=== PATIENT | female | born 1955 | race African-American/Black ===

== ENCOUNTER 2016-12-27 22:52 | Emergency (ER) | payer MEDICAID, OTHER ==
[~2016-12-27] VITALS: Ht 162.6 cm; Wt 77.1 kg
[~2016-12-27 22:52] MED LIST: ALBUTEROL2.5 MG/3 M INH; FLONASE1 SPRAYS NASAL; PROMETHAZINE V240 ML ORAL; TRAMADOL HCL50 MG ORAL
[2016-12-27 23:15] VITALS: BP 118/75
[2016-12-27] MEDS ORDERED: Morphine Sulfate 4mg/ml Inj IVP ONE (23:45)
[2016-12-28] MEDS ORDERED: Lidocaine 2% Visc 15ml soln ORAL ONE
[2016-12-28] MEDS ORDERED: TdaP Vaccine 0.5ml Syr IM ONE
[2016-12-28 00:27] LABS: INR 1.1 (0.9-1.1); PROTHROMBIN TIME 11.1 SEC (9.30-11.50)
[2016-12-28 00:30] LABS: ALANINE AMINOTRANSFERASE 33 U/L (3-33); ALBUMIN/GLOBULIN RATIO 1.1 (1.0-2.7); ANION GAP 14 (5-15); ASPARTATE AMINO TRANSFERASE 36 U/L (5-40); CARBON DIOXIDE 24 mEQ/L (20-30); CHLORIDE 104 mEQ/L (98-107); CREATININE 0.7 mg/dL (0.5-0.9); GLOMERULAR FILTRATION RATE > 60 mL/min (>60); HEMOLYSIS 3; POTASSIUM 3.6 mEQ/L (3.4-4.9); SODIUM 142 mEQ/L (135-145); TOTAL PROTEIN 7.6 g/dL (6.6-8.7)
[2016-12-28] MEDS ORDERED: Lidocaine 1% 10mg/ml/Epi 0.005mg/ml 30ml vial INJ ONE (00:30)
[2016-12-28 00:35] LABS: BASOPHILS % (AUTO) 1.6 % (0.0-2.0); EOSINOPHILS % (AUTO) 3.8 % (0.0-3.0); LYMPHOCYTES % (AUTO) 22.7 % (20.0-45.0); MEAN CORPUSCULAR HEMOGLOBIN 27.5 PG (27.0-31.0); MEAN CORPUSCULAR HGB CONC 31.4 G/DL (32.0-36.0); MEAN CORPUSCULAR VOLUME 88 FL (80-99); MEAN PLATELET VOLUME 7.7 FL (6.5-10.1); MONOCYTES % (AUTO) 8.3 % (1.0-10.0); NEUTROPHILS % (AUTO) 63.7 % (45.0-75.0); PLATELET COUNT 251 K/UL (150-450); RED BLOOD COUNT 4.69 M/UL (4.20-5.40); RED CELL DISTRIBUTION WIDTH 13.6 % (11.6-14.8); WHITE BLOOD COUNT 8.8 K/UL (4.8-10.8)
[2016-12-28 01:30] VITALS: BP 126/77
[2016-12-28] MEDS ORDERED: Morphine Sulfate 4mg/ml Inj IVP ONE (02:45)
[2016-12-28] MEDS ORDERED: NORCO 5-325 TA1 EACH ORAL (03:14)
[2016-12-28] MEDS ORDERED: IBUPROFEN600 MG ORAL (03:14)
[2016-12-28 03:58] VITALS: BP 121/78
--- NOTE | 2016-12-28 09:07 | Diagnostic Imaging Report ---
Indication: PAIN, status post fall Technique: Continuous helical CT scanning of the head was performed without intravenous contrast material. Axial and coronal 5 mm sections were generated. Radiation dose was minimized using automated exposure control Dose: Total Dose Length Product - DLP 12/02/[address] Dose Index - CTDIvol(s) 70.38 mGy. Comparison: Findings: The ventricular system is normal in size and configuration. There is no shift of midline structures. No abnormal extra-axial fluid collections are noted. There is no evidence of intracerebral bleeding. No other abnormal high or low density areas are noted within the brain. Soft tissue calcifications are seen within the left malar subcutaneous fat. The sinuses are clear. The orbits are unremarkable. There is no evidence of significant extracranial scalp soft tissue injury. Impression: Normal CT scan of the head without contrast material. Left facial soft tissue calcifications, suspect on the basis of cosmetic injections or connective tissue disorder. Correlate with clinical history This agrees with the preliminary interpretation provided overnight by [facility]. The CT scanner at [facility] is accredited by the [employer] and the scans are performed using protocols designed to limit radiation exposure to as low as reasonably achievable to attain images of sufficient resolution adequate for diagnostic evaluation.
--- NOTE | 2016-12-28 09:12 | Diagnostic Imaging Report ---
Indication: PAIN, status post fall Technique: Spiral acquisitions obtained through the cervical spine. No IV contrast utilized. Multiplanar reconstructions were generated. Total dose length product 476 mGycm. CTDIvol(s) 19 mGy Comparison: None Findings: Is slight straightening of the normal cervical lordosis, otherwise normal bony alignment. No acute fractures. No dislocations. Vertebral body heights are preserved. There is mild degenerative disc narrowing at C4-5, C5-6, and C6-7. There is facet degeneration at C2-3 on the right, and C3-4 on the left. At C2-3, there is moderate narrowing of the right neural foramen due to degenerative change. No significant disc bulge or protrusion or spinal stenosis. At C3-4, there is severe narrowing of the left neural foramen due to facet degeneration. There is mild narrowing of the right neural foramen. The remaining levels, no significant disc old or protrusion, spinal stenosis, or neural foraminal narrowing. Small bullous changes are seen at the lung apices bilaterally. There is questionably a subcentimeter left thyroid lobe nodule. The included extraspinal soft tissues are otherwise unremarkable. Impression: Negative for acute fracture or dislocation Degenerative changes, as delineated on a level by level basis above Equivocal incidental finding of subcentimeter left thyroid lobe nodule. Consider thyroid sonography for there are characterization This agrees with the preliminary interpretation provided overnight by [facility]. The CT scanner at [facility] is accredited by the [employer] and the scans are performed using protocols designed to limit radiation exposure to as low as reasonably achievable to attain images of sufficient resolution adequate for diagnostic evaluation.
--- NOTE | 2016-12-28 10:12 | Emergency Room Report ---
History of Present Illness General Chief Complaint: Multiple Trauma/Fall Source: Patient Present Illness HPI Patient is a 61-year-old female who presented after a fall. Patient reportedly was at a store when she slipped on a cement. She reported having increased pain to her right upper extremity and right knee. She reportedly hit her head. She denied loss of consciousness. She reported having some neck pain right shoulder pain. She denied any fever. She denied any numbness or extremities. Injury occurred just prior to arrival. She reports having no recent tetanus shot in the past 5 years Allergies: Coded Allergies: PENICILLINS (Unverified Allergy, Unknown, 09/17/14) Patient History Past Medical History: see triage record Reviewed Nursing Documentation: PMH: Agreed, PSxH: Agreed Nursing Documentation-PMH Hx Cardiac Problems: Yes - cholesterol Hx Asthma: Yes Review of Systems All Other Systems: negative except mentioned in HPI Physical Exam Vital Signs Date Time Temp Pulse Resp B/P Pulse Ox O2 Delivery O2 Flow Rate FiO2 12/27/16 23:04 97.3 73 16 114/72 95 Room Air Sp02 EP Interpretation: reviewed, normal General Appearance: normal inspection, well appearing, no apparent distress, alert, GCS 15, obese Head: atraumatic ENT: normal ENT inspection, hearing grossly normal, normal voice Neck: normal inspection, full range of motion, supple, no bony tend Respiratory: normal inspection, lungs clear, normal breath sounds, no respiratory distress, no retraction, no wheezing Cardiovascular #1: regular rate, rhythm, no edema Gastrointestinal: normal inspection, normal bowel sounds, non tender, soft, no guarding, no hernia Genitourinary: no CVA tenderness Musculoskeletal: normal inspection, back normal, normal range of motion Neurologic: normal inspection, alert, oriented x3, responsive, forestry patrolman III-XII nml as tested, speech normal Psychiatric: normal inspection, judgement/insight normal, mood/affect normal Skin: laceration - 2 cm laceration to webspace of 3rd and 4th fingers Procedures Laceration/Wound Repair Laceration/Wound Repair : Wound Location: upper extremity Wound's Depth, Shape: linear, irregular Wound Length (cm): 2 Wound Explored: clean Irrigated w/ Saline (ccs): 30 Betadine Prep?: Yes Anesthesia: Lidocaine w/ Epi Volume Anesthetic (ccs): 30 Wound Debrided: minimal Wound Repaired With: sutures Suture Size/Type: 5:0 Number of Sutures: 5 Layer Closure?: No Splint Applied?: Yes Type of Splint Applied: short arm volar Patient Tolerated: Well Complications: None Medical Decision Making Diagnostic Impression: Primary Impression: Fall Additional Impressions: Fracture Laceration Knee contusion Multiple injuries due to trauma ER Course The patient presented after a fall.Differential diagnosis included was not limited to neck fracture, CVA, close head injury, syncopal episode, basilar ischemia, extremity fracture. Because of complexity of patient's case laboratory testing and imaging studies were ordered. The x-ray imaging of the right hand interpreted by me showed a fracture of the base the fifth metacarpal. Patient was noted to have a laceration between the webspace of the third and fourth finger. The laceration was. And repaired with sutures. Sterile dressing was applied. The patient was placed in a splint. X-ray imaging of the right knee me showed soft tissue swelling without evident fracture. The patient was advised that she would need followup with orthopedics. Patient was advised to have suture removed in 10-14 days. The patient is advised to follow up with primary care doctor in 1-2 days. Patient is advised to return if any worsening condition or if any changes in status that are concerning. Laboratory Tests Test 12/28/16 00:00 White Blood Count 8.8 K/UL (4.8-10.8) Red Blood Count 4.69 M/UL (4.20-5.40) Hemoglobin 12.9 G/DL (12.0-16.0) Hematocrit 41.2 % (37.0-47.0) Mean Corpuscular Volume 88 FL (80-99) Mean Corpuscular Hemoglobin 27.5 PG (27.0-31.0) Mean Corpuscular Hemoglobin Concent 31.4 G/DL (32.0-36.0) L Red Cell Distribution Width 13.6 % (11.6-14.8) Platelet Count 251 K/UL (150-450) Mean Platelet Volume 7.7 FL (6.5-10.1) Neutrophils (%) (Auto) 63.7 % (45.0-75.0) Lymphocytes (%) (Auto) 22.7 % (20.0-45.0) Monocytes (%) (Auto) 8.3 % (1.0-10.0) Eosinophils (%) (Auto) 3.8 % (0.0-3.0) H Basophils (%) (Auto) 1.6 % (0.0-2.0) Prothrombin Time 11.1 SEC (9.30-11.50) Prothrombin Time INR 1.1 (0.9-1.1) PTT 24 SEC (23-33) Sodium Level 142 mEQ/L (135-145) Potassium Level 3.6 mEQ/L (3.4-4.9) Chloride Level 104 mEQ/L (98-107) Carbon Dioxide Level 24 mEQ/L (20-30) Anion Gap 14 (5-15) Blood Urea Nitrogen 14 mg/dL (7-23) Creatinine 0.7 mg/dL (0.5-0.9) Estimate Glomerular Filtration Rate > 60 mL/min (>60) Glucose Level 127 mg/dL (74-106) H Calcium Level 9.0 mg/dL (8.6-10.2) Total Bilirubin 0.4 mg/dL (0.0-1.2) Aspartate Amino Transferase (AST) 36 U/L (5-40) Alanine Aminotransferase (ALT) 33 U/L (3-33) Alkaline Phosphatase 78 U/L (35-104) Total Protein 7.6 g/dL (6.6-8.7) Albumin 4.0 g/dL (3.5-5.2) Globulin 3.6 g/dL Albumin/Globulin Ratio 1.1 (1.0-2.7) Last Vital Signs Date Time Temp Pulse Resp B/P Pulse Ox O2 Delivery O2 Flow Rate FiO2 12/28/16 03:58 98.1 85 16 121/78 100 Room Air Status: improved Disposition: HOME, SELF-CARE Condition: Stable Scripts Ibuprofen* (MOTRIN*) 600 Mg Tablet 600 MG ORAL Q6H Y for For Pain, #30 TAB Prov: Manuel Adams 12/28/16 Hydrocodone Bit/Acetaminophen 5-325* (NORCO 5-325*) 1 Each Tablet 1 TAB ORAL Q6H Y for For Pain, #20 TAB 0 Refills Prov: Manuel Adams 12/28/16 Patient Instructions: Laceration Care, Adult, Contusion, Metacarpal Fracture Manuel Adams Dec 28, 2016 10:12
--- NOTE | 2016-12-28 11:59 | Diagnostic Imaging Report ---
Indication: PAIN Technique: 3 views of the right knee Comparison: None Findings:No acute fractures. No dislocations. Joint spaces are preserved Impression:Negative This agrees with the preliminary interpretation provided by the emergency room physician
--- NOTE | 2016-12-30 13:00 | Diagnostic Imaging Report ---
Indication: PAIN Technique: 3 views right hand Comparison: none Findings: There is a comminuted fracture of the base of the fifth metacarpal. Uncertain as to whether this involves the articular surface, but suspect it does not. No other acute fractures. No dislocations. Joint spaces are preserved. Impression: Positive for fifth metacarpal base fracture This agrees with the preliminary interpretation provided by the emergency room physician
== END 2016-12-28 03:58 | disposition home or self-care (01) ==
LOC: EMR 23:20
DX: S61.218A Laceration without foreign body of other finger without damage to nail, initial encounter (principal); M54.2 Cervicalgia; S62.606A Fracture of unspecified phalanx of right little finger, initial encounter for closed fracture; S80.01XA Contusion of right knee, initial encounter; Z88.6 Allergy status to analgesic agent; W01.0XXA Fall on same level from slipping, tripping and stumbling without subsequent striking against object, initial encounter; Y93.9 Activity, unspecified; Y92.512 Supermarket, store or market as the place of occurrence of the external cause
CPT/HCPCS: 12001; 36415; 70450; 72125; 73130; 73562; 80053; 85025; 85610; 85730; 90471; 90715; 96374; 96375; 99284; J2270; J2405; Z7502

== ENCOUNTER 2017-03-13 20:19 | Emergency (ER) | payer OTHER ==
[~2017-03-13] VITALS: Ht 162.6 cm; Wt 83.0 kg
[~2017-03-13 20:19] MED LIST changes: +IBUPROFEN600 MG ORAL; +NORCO 5-325 TA1 EACH ORAL
[2017-03-13 20:36] VITALS: BP 134/61
--- NOTE | 2017-03-13 20:57 | Emergency Room Report ---
History of Present Illness General Chief Complaint: Chest Pain Source: Patient Present Illness HPI Patient presents with right chest and flank pain. It started . It's intermittent. It's worse when she's jolted. The pain comes on suddenly and is rated at 7/10 pain. Radiates somewhat towards her back. Somewhat positional and pleuritic. It's somewhat exertional. There's been no productive cough. She's used her inhaler couple of times. There's no nausea vomiting diarrhea dysuria. She denies any rashes. There's been no fevers. She's taking some medicine [id number] for the pain which has not been helpful. There's no swelling in her calves and no calf pain. The patient sustained a right hand fracture recently. She's been unable to go to the gym since November. Allergies: Coded Allergies: CODEINE (Verified Allergy, Unknown, 03/13/17) PENICILLINS (Unverified Allergy, Unknown, 03/13/17) Patient History Past Medical History: see triage record Social History: Denies: alcohol use, drug use, smoking Social History Narrative She drove herself in Last Menstrual Period: n/a Reviewed Nursing Documentation: PMH: Agreed, PSxH: Agreed Nursing Documentation-PMH Hx Cardiac Problems: Yes - cholesterol Hx Asthma: Yes Review of Systems All Other Systems: negative except mentioned in HPI Physical Exam Vital Signs Date Time Temp Pulse Resp B/P Pulse Ox O2 Delivery O2 Flow Rate FiO2 03/13/17 20:24 98.4 94 13 134/61 94 Room Air Sp02 EP Interpretation: reviewed, abnormal - slightly low as interpreted by me General Appearance: well appearing, no apparent distress, GCS 15 Head: normocephalic Eyes: bilateral eye PERRL, bilateral eye normal inspection ENT: moist mucus membranes Neck: supple Respiratory: lungs clear, normal breath sounds, other - chest is tender to palpation R sided recreating the pain Cardiovascular #1: regular rate, rhythm Cardiovascular #2: 2+ radial (R) Gastrointestinal: normal inspection, normal bowel sounds, no mass, non- distended, no guarding, no rebound, tenderness - slight RUQ Musculoskeletal: back normal, gait/station normal, normal range of motion, no calf tenderness Neurologic: alert, oriented x3, grossly normal Psychiatric: mood/affect normal Skin: normal inspection, warm/dry Medical Decision Making Diagnostic Impression: Primary Impression: Flank pain Additional Impression: Muscle spasm ER Course The patient presents with right-sided chest and flank pain. Differential includes pyelonephritis, muscle strain, liver issues including a gallbladder. Evaluation will be with laboratory EKG and chest x-ray. This will be treated with Toradol. Exam is most consistent with muscle spasms and muscle pain. Labs and xray unremarkable. EKG normal. Improved with treatment. Patient stable for outpatient observation and treatment. Laboratory Tests Test 03/13/17 20:50 03/13/17 21:30 White Blood Count 7.0 K/UL (4.8-10.8) Red Blood Count 4.33 M/UL (4.20-5.40) Hemoglobin 12.4 G/DL (12.0-16.0) Hematocrit 37.6 % (37.0-47.0) Mean Corpuscular Volume 87 FL (80-99) Mean Corpuscular Hemoglobin 28.7 PG (27.0-31.0) Mean Corpuscular Hemoglobin Concent 33.0 G/DL (32.0-36.0) Red Cell Distribution Width 13.9 % (11.6-14.8) Platelet Count 240 K/UL (150-450) Mean Platelet Volume 7.5 FL (6.5-10.1) Neutrophils (%) (Auto) 54.4 % (45.0-75.0) Lymphocytes (%) (Auto) 27.4 % (20.0-45.0) Monocytes (%) (Auto) 9.4 % (1.0-10.0) Eosinophils (%) (Auto) 7.6 % (0.0-3.0) H Basophils (%) (Auto) 1.2 % (0.0-2.0) Prothrombin Time 11.0 SEC (9.30-11.50) Prothrombin Time INR 1.1 (0.9-1.1) PTT 24 SEC (23-33) Sodium Level 142 mEQ/L (135-145) Potassium Level 3.7 mEQ/L (3.4-4.9) Chloride Level 101 mEQ/L (98-107) Carbon Dioxide Level 27 mEQ/L (20-30) Anion Gap 14 (5-15) Blood Urea Nitrogen 21 mg/dL (7-23) Creatinine 1.0 mg/dL (0.5-0.9) H Estimate Glomerular Filtration Rate > 60 mL/min (>60) Glucose Level 130 mg/dL (74-106) H Calcium Level 9.2 mg/dL (8.6-10.2) Total Bilirubin 0.3 mg/dL (0.0-1.2) Aspartate Amino Transferase (AST) 35 U/L (5-40) Alanine Aminotransferase (ALT) 33 U/L (3-33) Alkaline Phosphatase 73 U/L (35-104) Total Creatine Kinase 345 U/L (26-140) H Troponin I < 0.30 ng/mL (<=0.30) Total Protein 6.8 g/dL (6.6-8.7) Albumin 3.6 g/dL (3.5-5.2) Globulin 3.2 g/dL Albumin/Globulin Ratio 1.1 (1.0-2.7) Lipase 43 U/L (< 60) Urine Color Pale yellow Urine Appearance Clear Urine pH 7 (4.5-8.0) Urine Specific [place] 1.010 (1.005-1.035) Urine Protein Negative (NEGATIVE) Urine Glucose (UA) Negative (NEGATIVE) Urine Ketones Negative (NEGATIVE) Urine Occult Blood Negative (NEGATIVE) Urine Nitrite Negative (NEGATIVE) Urine Bilirubin Negative (NEGATIVE) Urine Urobilinogen 1 MG/DL (0.0-1.0) H Urine Leukocyte Esterase Negative (NEGATIVE) EKG Diagnostic Results Rate: normal Rhythm: NSR ST Segments: no acute changes Rhythm Strip Diag. Results EP Interpretation: yes Rhythm: NSR, no PVC's, no ectopy Chest X-Ray Diagnostic Results EP Interpretation: Yes Findings: no consolidation, no effusion, no pneumothorax, no acute cardiopulmonary disease Number of Views: 1 Last Vital Signs Date Time Temp Pulse Resp B/P Pulse Ox O2 Delivery O2 Flow Rate FiO2 03/13/17 23:27 98.4 82 13 127/63 96 Room Air Status: improved Disposition: HOME, SELF-CARE Condition: Improved Scripts Cyclobenzaprine Hcl* (FLEXERIL*) 10 Mg Tablet 10 MG ORAL TID Y for Muscle Spasm, #12 TAB Prov: Gen Muñiz M.D. 03/13/17 Hydrocodone Bit/Acetaminophen 5-325* (NORCO 5-325*) 1 Each Tablet 1 TAB ORAL Q6H Y for For Pain, #10 TAB 0 Refills Prov: Gen Muñiz M.D. 03/13/17 Ibuprofen* (MOTRIN*) 600 Mg Tablet 600 MG ORAL Q6H Y for For Pain, #20 TAB Prov: Gen Muñiz M.D. 03/13/17 Gen Muñiz M.D. Mar 13, 2017 20:57
[2017-03-13] MEDS ORDERED: Ketorolac 30mg Inj IV ONE (21:00)
[2017-03-13 21:11] LABS: BASOPHILS % (AUTO) 1.2 % (0.0-2.0); EOSINOPHILS % (AUTO) 7.6 % (0.0-3.0); LYMPHOCYTES % (AUTO) 27.4 % (20.0-45.0); MEAN CORPUSCULAR HEMOGLOBIN 28.7 PG (27.0-31.0); MEAN CORPUSCULAR VOLUME 87 FL (80-99); MEAN PLATELET VOLUME 7.5 FL (6.5-10.1); MONOCYTES % (AUTO) 9.4 % (1.0-10.0); NEUTROPHILS % (AUTO) 54.4 % (45.0-75.0); PLATELET COUNT 240 K/UL (150-450); RED BLOOD COUNT 4.33 M/UL (4.20-5.40); RED CELL DISTRIBUTION WIDTH 13.9 % (11.6-14.8)
[2017-03-13 21:24] LABS: INR 1.1 (0.9-1.1)
[2017-03-13 21:28] LABS: ALANINE AMINOTRANSFERASE 33 U/L (3-33); ALBUMIN/GLOBULIN RATIO 1.1 (1.0-2.7); ANION GAP 14 (5-15); ASPARTATE AMINO TRANSFERASE 35 U/L (5-40); CALCIUM 9.2 mg/dL (8.6-10.2); CARBON DIOXIDE 27 mEQ/L (20-30); CHLORIDE 101 mEQ/L (98-107); GLOMERULAR FILTRATION RATE > 60 mL/min (>60); HEMOLYSIS 20; LIPASE 43 U/L (< 60); POTASSIUM 3.7 mEQ/L (3.4-4.9); SODIUM 142 mEQ/L (135-145); TOTAL PROTEIN 6.8 g/dL (6.6-8.7); TROPONIN I < 0.30 ng/mL (<=0.30)
[2017-03-13 22:16] LABS: APPEARANCE,URINE CLEAR; KETONES,URINE NEGATIVE (NEGATIVE); LEUKOCYTE ESTERASE ,URINE NEGATIVE (NEGATIVE); NITRITE,URINE NEGATIVE (NEGATIVE); PH,URINE 7 (4.5-8.0); PROTEIN,URINE NEGATIVE (NEGATIVE); UROBILINOGEN,URINE 1 MG/DL (0.0-1.0)
[2017-03-13] MEDS ORDERED: Morphine Sulfate 4mg/ml Inj IVP ONE (22:30)
[2017-03-13 23:14] VITALS: BP 127/63
[2017-03-13] MEDS ORDERED: NORCO 5-325 TA1 EACH ORAL (23:16)
[2017-03-13] MEDS ORDERED: CYCLOBENZAPRINE10 MG ORAL (23:16)
[2017-03-13] MEDS ORDERED: IBUPROFEN600 MG ORAL (23:16)
[2017-03-13 23:27] VITALS: BP 127/63
--- NOTE | 2017-03-14 11:14 | Diagnostic Imaging Report ---
Indication: Chest pain Technique: One view of the chest Comparison: 08/15/2006 Findings: Lungs and pleural spaces are clear. Heart size is normal. No significant change Impression: No acute process This agrees with the preliminary interpretation provided by the emergency room physician
--- NOTE | 2017-03-14 13:42 | Cardiology Report ---
APPROVED REPORT EKG Measurement Heart [id number] Normal sinus rhythm Normal ECG
== END 2017-03-13 23:31 | disposition home or self-care (01) ==
LOC: EMR 21:12
DX: R10.9 Unspecified abdominal pain (principal); M62.838 Other muscle spasm; Z88.6 Allergy status to analgesic agent; Z88.0 Allergy status to penicillin; J45.909 Unspecified asthma, uncomplicated
CPT/HCPCS: 36415; 71010; 80053; 81003; 82550; 83690; 84484; 85025; 85610; 85730; 93005; 96374; 96375; 99284; J1885; J2270; J2405

== ENCOUNTER 2017-03-16 08:43 | Emergency (ER) | payer OTHER ==
[~2017-03-16] VITALS: Ht 162.6 cm; Wt 68.0 kg
[~2017-03-16 08:43] MED LIST changes: +CYCLOBENZAPRINE10 MG ORAL
[2017-03-16 09:13] VITALS: BP 121/62
[2017-03-16] MEDS ORDERED: Oxycodone/Acetaminophen 5-325 ORAL ONE (09:30)
[2017-03-16 09:42] LABS: BASOPHILS % (AUTO) 1.3 % (0.0-2.0); EOSINOPHILS % (AUTO) 6.2 % (0.0-3.0); LYMPHOCYTES % (AUTO) 30.3 % (20.0-45.0); MEAN CORPUSCULAR HGB CONC 31.3 G/DL (32.0-36.0); MEAN CORPUSCULAR VOLUME 86 FL (80-99); MEAN PLATELET VOLUME 7.3 FL (6.5-10.1); MONOCYTES % (AUTO) 10.4 % (1.0-10.0); NEUTROPHILS % (AUTO) 51.8 % (45.0-75.0); PLATELET COUNT 262 K/UL (150-450); RED BLOOD COUNT 5.23 M/UL (4.20-5.40); RED CELL DISTRIBUTION WIDTH 13.7 % (11.6-14.8); WHITE BLOOD COUNT 6.4 K/UL (4.8-10.8)
[2017-03-16 09:50] LABS: TROPONIN I < 0.30 ng/mL (<=0.30)
[2017-03-16 09:51] LABS: ALANINE AMINOTRANSFERASE 31 U/L (3-33); ALBUMIN/GLOBULIN RATIO 1.1 (1.0-2.7); ANION GAP 13 (5-15); ASPARTATE AMINO TRANSFERASE 30 U/L (5-40); CALCIUM 9.6 mg/dL (8.6-10.2); CARBON DIOXIDE 28 mEQ/L (20-30); CHLORIDE 97 mEQ/L (98-107); GLOMERULAR FILTRATION RATE > 60 mL/min (>60); HEMOLYSIS 2; SODIUM 138 mEQ/L (135-145); TOTAL PROTEIN 7.7 g/dL (6.6-8.7)
[2017-03-16 10:01] LABS: CKMB 6.7 ng/mL (< 3.8)
[2017-03-16] MEDS ORDERED: IBUPROFEN600 MG ORAL (10:06)
[2017-03-16] MEDS ORDERED: VALACYCLOVIR500 MG ORAL (10:06)
[2017-03-16] MEDS ORDERED: PREDNISONE20 MG ORAL (10:11)
--- NOTE | 2017-03-16 10:11 | Emergency Room Report ---
History of Present Illness General Chief Complaint: Skin Rash/Abscess Source: Patient Present Illness HPI 62YOF presents with "Rash" to right stomach. Was here last week for right sided abd pain, had negative workup. Was DCed. States rash broke out in area where she had pain. Took OTC meds at home for pain with minimal improvement earlier. Allergies: Coded Allergies: CODEINE (Verified Allergy, Unknown, 03/13/17) PENICILLINS (Unverified Allergy, Unknown, 03/13/17) Patient History Past Medical History: see triage record, old chart reviewed Past Surgical History: none Pertinent Family History: none Social History: Denies: alcohol use, drug use, smoking Now: No Immunizations: UTD Reviewed Nursing Documentation: PMH: Agreed, PSxH: Agreed Nursing Documentation-PMH Past Medical History: No History, Except For Hx Cardiac Problems: Yes - cholesterol Hx Asthma: Yes Review of Systems All Other Systems: negative except mentioned in HPI Physical Exam Vital Signs Date Time Temp Pulse Resp B/P Pulse Ox O2 Delivery O2 Flow Rate FiO2 03/16/17 09:00 97.7 154 16 95/57 96 Room Air Sp02 EP Interpretation: reviewed, normal General Appearance: normal inspection, well appearing, no apparent distress, alert, GCS 15, non-toxic Head: normocephalic, atraumatic Eyes: bilateral eye EOMI, bilateral eye PERRL ENT: normal ENT inspection, hearing grossly normal, normal voice Neck: normal inspection, full range of motion, supple, no bony tend Respiratory: normal inspection, lungs clear, normal breath sounds, no respiratory distress, no retraction, no wheezing Cardiovascular #1: regular rate, rhythm, no edema Gastrointestinal: normal inspection, normal bowel sounds, non tender, soft, no guarding, no hernia Genitourinary: no CVA tenderness Musculoskeletal: normal inspection, back normal, normal range of motion, Gi' s Sign negative Neurologic: normal inspection, alert, oriented x3, responsive, speech normal Psychiatric: normal inspection, judgement/insight normal, mood/affect normal Skin: other - Across right T5, T6 dermatome under right breast are 2 areas 6cm each of erythematous base with weeping vesicles Lymphatic: normal inspection Medical Decision Making Diagnostic Impression: Primary Impression: Zoster Qualified Codes: B02.9 - Zoster without complications ER Course 62 YOF with herpes zoster/shingles on right abdomen. VSS. Afebrile. Rx Valtrex, prednisone, Ibuprofen, PMD followup During HPI, patient's HR spiked to 160. Sinus tachycardia on monitor and ECG. Patient admits to anxiety around doctors/hospitals. Denied chest pain, SOB, palpitations at the time. Blood work was done given patient's age. No leuks. H&H stable. Troponin 0. Unlikely ACS as spontaneously resolved to NSR, HR 80 within minutes without ED intervention DC home EKG Diagnostic Results Rate: normal Rhythm: NSR ST Segments: no acute changes ASA given to the pt in ED: No Rhythm Strip Diag. Results EP Interpretation: yes Rate: 80 Rhythm: NSR, no PVC's, no ectopy Chest X-Ray Diagnostic Results EP Interpretation: Yes Findings: no consolidation, no effusion, no pneumothorax, no acute cardiopulmonary disease Number of Views: 1 Last Vital Signs Date Time Temp Pulse Resp B/P Pulse Ox O2 Delivery O2 Flow Rate FiO2 03/16/17 09:13 97.7 124 16 121/62 96 Room Air Status: improved Disposition: HOME, SELF-CARE Condition: Improved Scripts Ibuprofen* (MOTRIN*) 600 Mg Tablet 600 MG ORAL THREE TIMES A DAY for For Pain for 7 Days, #30 TAB 0 Refills Prov: EM HILL M.D. 03/16/17 Valacyclovir Hcl* (VALTREX*) 500 Mg Tablet 1000 MG ORAL TID for 7 Days, #42 TAB Prov: EM HILL M.D. 03/16/17 Patient Instructions: Shingles, [id number] Additional Instructions: - Take Valtrex - 1000mg - 3x a day for 7 days. Take ALL medication. - Take prednisone twice daily for 3 days - Take Ibuprofen 600mg up to 3x a day with food as needed for pain - Follow up with your doctor in 1 week EM HILL M.D. Mar 16, 2017 10:11
[2017-03-16 10:24] VITALS: BP 98/45
[2017-03-16 10:26] VITALS: BP 98/45
--- NOTE | 2017-03-16 13:32 | Diagnostic Imaging Report ---
Indication: PAIN Technique: One view of the chest Comparison: 03/13/2017 Findings: Patient's chin obscures the upper most mediastinum. Lungs and pleural spaces are clear. Heart size is normal Impression: Negative
--- NOTE | 2017-03-18 21:19 | Cardiology Report ---
APPROVED REPORT EKG Measurement Heart [id number] Atrial flutter with 2:[address] N[address] and T wave abnormality Abnormal ECG
== END 2017-03-16 10:27 | disposition home or self-care (01) ==
LOC: EMR 09:17
DX: B02.9 Zoster without complications (principal); Z88.6 Allergy status to analgesic agent; Z88.0 Allergy status to penicillin; J45.909 Unspecified asthma, uncomplicated
CPT/HCPCS: 36415; 71010; 80053; 82550; 82553; 84484; 85025; 93005; 99284

== ENCOUNTER 2017-03-23 05:13 | Emergency (ER) | payer OTHER ==
[~2017-03-23 05:13] MED LIST changes: +PREDNISONE20 MG ORAL; +VALACYCLOVIR500 MG ORAL
== END 2017-03-23 05:30 | disposition left against medical advice (07) ==
LOC: EMR 05:30
DX: R52 Pain, unspecified (principal); Z53.21 Procedure and treatment not carried out due to patient leaving prior to being seen by health care provider

== ENCOUNTER 2017-06-25 12:51 | Emergency (ER) | payer OTHER ==
[~2017-06-25] VITALS: Ht 162.6 cm; Wt 70.3 kg
[2017-06-25] MEDS ORDERED: HydrOXYzine 25mg tab ORAL ONE (13:30)
--- NOTE | 2017-06-25 13:31 | Emergency Room Report ---
History of Present Illness General Chief Complaint: Skin Rash/Abscess Source: Patient Present Illness HPI 62 YO Female presents to the ED c/o Itching, swelling, and erythema of multiple areas of the upper extremities x 3 days. pt. reports progressive swelling, 6/10 in severity tenderness and erythema to right forearm x 2 days. pt. denies fevers, chills, new medications or foods. pt denies blisters. pt. denies recent travel. Pt. denies trauma or fall. pt. denies wheezing, swelling of the lips or tongue. denies abdominal pain. Denies CP, Palpitations, LOC, AMS , dizziness, Changes in Vision, Sensation, paresthesias, or a sudden severe headache. Allergies: Coded Allergies: CODEINE (Verified Allergy, Unknown, 03/13/17) PENICILLINS (Unverified Allergy, Unknown, 03/13/17) Patient History Past Medical History: see triage record Past Surgical History: none Pertinent Family History: none Last Menstrual Period: na Now: No Immunizations: UTD Reviewed Nursing Documentation: PMH: Agreed, PSxH: Agreed Nursing Documentation-PMH Past Medical History: No History, Except For Hx Cardiac Problems: Yes - cholesterol Hx Asthma: Yes Review of Systems All Other Systems: negative except mentioned in HPI Physical Exam Vital Signs Date Time Temp Pulse Resp B/P Pulse Ox O2 Delivery O2 Flow Rate FiO2 06/25/17 12:58 97.9 82 18 110/72 98 Room Air Sp02 EP Interpretation: reviewed, normal General Appearance: no apparent distress, alert, GCS 15, non-toxic Head: normocephalic, atraumatic Eyes: bilateral eye PERRL, bilateral eye normal inspection ENT: hearing grossly normal, normal pharynx, no angioedema, normal voice Neck: full range of motion, supple/symm/no masses Respiratory: chest non-tender, lungs clear, normal breath sounds, speaking full sentences Cardiovascular #1: regular rate, rhythm, no edema Musculoskeletal: back normal, gait/station normal, normal range of motion, non- tender Neurologic: alert, oriented x3, responsive, motor strength/tone normal, sensory intact, speech normal Psychiatric: judgement/insight normal, memory normal, mood/affect normal Skin: normal color, warm/dry, well hydrated, rash - multiple 0.5cm insect bites of the upper extremities, and 7cm area of erythema, increased temperature to palpation of the right forearm Lymphatic: no adenopathy Medical Decision Making PA Attestation Dr. garcia is my supervising Physician whom patient management has been discussed with. Diagnostic Impression: Primary Impression: Insect bite Qualified Codes: W57.XXXA - Bitten or stung by nonvenomous insect and other nonvenomous arthropods, initial encounter Additional Impression: Cellulitis Qualified Codes: L03.113 - Cellulitis of right upper limb ER Course 62 YO Female presents to the ED c/o Itching, swelling, and erythema of multiple areas of the upper extremities x 3 days. pt. reports progressive swelling, 6/10 in severity tenderness and erythema to right forearm x 2 days. pt. denies fevers, chills, new medications or foods. pt denies blisters. pt. denies recent travel. Pt. denies trauma or fall. pt. denies wheezing, swelling of the lips or tongue. denies abdominal pain. Denies CP, Palpitations, LOC, AMS , dizziness, Changes in Vision, Sensation, paresthesias, or a sudden severe headache. Ddx considered but are not limited to cellulitis, scabies, insect bites, tic bites, spider bites, contact dermatitis, Drug reaction, allergic reaction, fungal infection, lice. Vital signs: are WNL, pt. is afebrile H&PE are most consistent with multiple insect bites of the upper extremities, and secondary cellulitis of the right forearm ORDERS: none required at this time, the diagnosis is clinical ED INTERVENTIONS: -Atarax PO -Tylenol PO Pt Education: d/w pt. to avoid scratching as bacteria under the nails can cause secondary infections. also d/w pt. not to drive while taking Atarax. DISCHARGE: At this time pt. is stable for d/c to home. Will provide printed patient care instructions, and any necessary prescriptions. Care plan and follow up instructions have been discussed with the patient prior to discharge. Last Vital Signs Date Time Temp Pulse Resp B/P Pulse Ox O2 Delivery O2 Flow Rate FiO2 06/25/17 12:58 97.9 82 18 110/72 98 Room Air Disposition: HOME, SELF-CARE Condition: Stable Scripts Cephalexin* (KEFLEX*) 500 Mg Capsule 500 MG ORAL EVERY 12 HOURS for 7 Days, #14 CAP 0 Refills Prov: Mouna Orlando 06/25/17 Hydrocortisone (Hydrocortisone Cream 2.5%) Y Cream.appl 1 APPLIC TP BID, #28.3 GM Prov: Mouna Orlando 06/25/17 Hydroxyzine HCl (Hydroxyzine HCl) 25 Mg Tablet 25 MG ORAL FOUR TIMES A DAY for 5 Days, #20 TAB Prov: Mouna Orlando 06/25/17 Referrals: [facility],REFERRING (PCP) Patient Instructions: Cellulitis, [id number], Insect Bite, [id number] Additional Instructions: Take medications as directed. Follow up with a Primary Care Provider in 3-5 days, even if your symptoms have resolved. --Please review list of primary care clinics, if you do not already have a primary care provider Return sooner to ED if new symptoms occur, or current symptoms become worse. Do not drink alcohol, drive, or operate heavy machinery while taking Atarax/ Hydroxyzine as this may cause drowsiness. - Please note that this Emergency Department Report was dictated using [employer] technology software, occasionally this can lead to erroneous entry secondary to interpretation by the dictation equipment. Mouna Orlando Jun 25, 2017 13:31
[2017-06-25] MEDS ORDERED: ATARAX25 MG ORAL (13:36)
[2017-06-25] MEDS ORDERED: HYDROCORTISONE30 G2 TP (13:36)
[2017-06-25] MEDS ORDERED: CEPHALEXIN500 MG ORAL (13:36)
[2017-06-25 13:52] VITALS: BP 110/72
[2017-06-25 13:53] VITALS: BP 110/72
== END 2017-06-25 13:53 | disposition home or self-care (01) ==
LOC: EMR 13:17
DX: S40.862A Insect bite (nonvenomous) of left upper arm, initial encounter (principal); S40.861A Insect bite (nonvenomous) of right upper arm, initial encounter; L03.113 Cellulitis of right upper limb; J45.909 Unspecified asthma, uncomplicated; Z88.6 Allergy status to analgesic agent; Z88.0 Allergy status to penicillin; W57.XXXA Bitten or stung by nonvenomous insect and other nonvenomous arthropods, initial encounter; Y92.9 Unspecified place or not applicable
CPT/HCPCS: 99284

== ENCOUNTER 2018-04-14 21:51 | Emergency (ER) | payer MEDICARE, OTHER ==
[~2018-04-14] VITALS: Ht 165.1 cm; Wt 68.0 kg
[~2018-04-14 21:51] MED LIST changes: +ATARAX25 MG ORAL; +CEPHALEXIN500 MG ORAL; +HYDROCORTISONE30 G2 TP
[2018-04-14] MEDS ORDERED: Acetaminophen 500mg (ES) tab ORAL ONE (22:30)
--- NOTE | 2018-04-14 22:55 | Diagnostic Imaging Report ---
EXAM: XR Left Ankle Complete, 3 or More Views CLINICAL HISTORY: PAIN TECHNIQUE: Frontal, lateral and oblique views of the left ankle. COMPARISON: No relevant prior studies available. FINDINGS: Bones/joints: No acute fracture or malalignment. Soft tissues: Soft tissue edema. IMPRESSION: No acute fracture or malalignment.
--- NOTE | 2018-04-14 22:56 | Diagnostic Imaging Report ---
EXAM: XR Left Foot Complete, 3 or More Views CLINICAL HISTORY: PAIN TECHNIQUE: Frontal, lateral and oblique views of the left foot. COMPARISON: No relevant prior studies available. FINDINGS: Bones/joints: No acute fracture or malalignment. Degenerative changes in the midfoot. Small plantar calcaneal osteophyte. Soft tissues: Unremarkable. No radiopaque foreign body. IMPRESSION: No acute fracture or malalignment.
[2018-04-14] MEDS ORDERED: TYLENOL EXTRA500 MG ORAL (23:59)
[2018-04-15 00:05] VITALS: BP 118/71
--- NOTE | 2018-04-15 05:41 | Emergency Room Report ---
History of Present Illness General Chief Complaint: Lower Extremity Injury Source: Patient Present Illness HPI 63-year-old female presents ED complaining of left ankle pain status post fall. States yesterday at work she tripped and rolled her ankle. Denies hitting her head or LOC. Denies any other injuries. Patient notes pain and swelling to her left ankle. Pain is a 10 out of 10, throbbing, nonradiating. Unable to bear weight. No other aggravating relieving factors. Denies any other associated symptoms Allergies: Coded Allergies: CODEINE (Verified Allergy, Unknown, 03/13/17) PENICILLINS (Unverified Allergy, Unknown, 03/13/17) Patient History Past Medical History: asthma Past Surgical History: none Pertinent Family History: none Social History: Denies: smoking, alcohol use, drug use Now: No Immunizations: UTD Reviewed Nursing Documentation: PMH: Agreed; PSxH: Agreed Nursing Documentation-PMH Hx Cardiac Problems: Yes - cholesterol Hx Asthma: Yes Review of Systems All Other Systems: negative except mentioned in HPI Physical Exam Vital Signs Date Time Temp Pulse Resp B/P (MAP) Pulse Ox O2 Delivery O2 Flow Rate FiO2 04/14/18 22:05 97.7 87 16 118/71 95 Room Air 97.7 Sp02 EP Interpretation: reviewed, normal General Appearance: no apparent distress, alert, GCS 15, non-toxic Head: normocephalic Eyes: bilateral eye normal inspection, bilateral eye PERRL ENT: normal ENT inspection Neck: normal inspection Respiratory: normal inspection Cardiovascular #1: normal inspection Gastrointestinal: normal inspection Rectal: deferred Genitourinary: no CVA tenderness Musculoskeletal: tender - L ankle Neurologic: alert, oriented x3, responsive, motor strength/tone normal, sensory intact, speech normal Psychiatric: normal inspection Skin: normal inspection Lymphatic: normal inspection Procedures Splinting Splinting : Consent: Verbal Pre-Made Type: ROMELIA wrap Pre-Proc Neuro Vasc Exam: normal Post-Proc Neuro Vasc Exam: normal Patient Tolerated: Well Complications: None Medical Decision Making Diagnostic Impression: Primary Impression: Ankle sprain Qualified Codes: S93.402A - Sprain of unspecified ligament of left ankle, initial encounter ER Course Hospital Course 63-year-old F presents to ED complaining of L ankle pain s/p trip and fall Differential diagnoses include: Fracture, dislocation, sprain, contusion Clinical course Patient placed on stretcher. After initial history and physical, I ordered pain medications and Xrays of L foot/ankle Xrays read shows no acute fracture/dislocation. placed in romelia wrap, given crutches Diagnosis - ankle sprain Stable and discharged to home with prescription for Tylenol. apply ice, keep elevated. weight bear as tolerated. Followup with PMD. Return to ED if symptoms recur or worsen Other X-Ray Diagnostic Results Other X-Ray Diagnostic Results #1: X-Ray ordered: L ankle # of Views/Limited Vs Complete: 3 View Indication: Pain EP Interpretation: Yes Interpretation: no dislocation, no soft tissue swelling, no fractures Impression: No acute disease Electronically Signed by: Electronically signed by Rubén Márquez MD Other X-Ray Diagnostic Results #2: X-Ray ordered: L foot # of Views/Limited Vs Complete: 3 View Indication: Pain EP Interpretation: Yes Interpretation: no dislocation, no soft tissue swelling, no fractures Impression: No acute disease Electronically Signed by: Electronically signed by Rubén Márquez MD Last Vital Signs Date Time Temp Pulse Resp B/P (MAP) Pulse Ox O2 Delivery O2 Flow Rate FiO2 04/15/18 00:05 97.7 16 118/71 95 Room Air 97.7 04/14/18 22:05 87 Status: improved Disposition: HOME, SELF-CARE Condition: Stable Scripts Acetaminophen* (TYLENOL EXTRA STRENGTH*) 500 Mg Tablet 500 MG ORAL Q8H PRN for Prn Headache/Temp > 101, #30 TAB 0 Refills Prov: Rubén Márquez MD 04/14/18 Patient Instructions: Ankle Sprain Rubén Márquez MD April 15, 2018 05:41
== END 2018-04-15 00:05 | disposition home or self-care (01) ==
LOC: EMR 23:18
DX: S93.402A Sprain of unspecified ligament of left ankle, initial encounter (principal); X50.1XXA Overexertion from prolonged static or awkward postures, initial encounter; Y92.89 Other specified places as the place of occurrence of the external cause; J45.909 Unspecified asthma, uncomplicated; Z88.0 Allergy status to penicillin; Z88.5 Allergy status to narcotic agent
CPT/HCPCS: 99284

== ENCOUNTER 2019-03-04 20:49 | Emergency (ER) | payer MEDICARE, OTHER ==
[~2019-03-04] VITALS: Ht 162.6 cm; Wt 63.5 kg
[~2019-03-04 20:49] MED LIST changes: +TYLENOL EXTRA500 MG ORAL
[2019-03-04 21:08] VITALS: BP 123/66
--- NOTE | 2019-03-04 21:08 | NUR ---
ED Nurse Note: Pt arrived ED from home, c/o right knee pain 4/10 for one week, Pt is A/O X4. Vital signs stable at this time, waiting for orders.
--- NOTE | 2019-03-04 21:12 | Emergency Room Report ---
History of Present Illness General Chief Complaint: Pain Source: Patient Present Illness HPI Patient present with complaints of discomfort to the right knee She reports that about 5 weeks ago she had a fall onto her knee Initially did not feel much discomfort Reports that over the past 7 days now she has some increased discomfort when going up the stairs Feels some pain deep inside the knee under the patella Denies any ankle pain denies any pelvic pain Denies any other fall since then denies any neuropathy Allergies: Coded Allergies: CODEINE (Verified Allergy, Unknown, 03/04/19) PENICILLINS (Unverified Allergy, Unknown, 03/04/19) Patient History Past Medical History: see triage record Pertinent Family History: none Reviewed Nursing Documentation: PMH: Agreed; PSxH: Agreed Nursing Documentation-PMH Hx Cardiac Problems: Yes - cholesterol Hx Asthma: Yes Review of Systems All Other Systems: negative except mentioned in HPI Physical Exam Vital Signs Date Time Temp Pulse Resp B/P (MAP) Pulse Ox O2 Delivery O2 Flow Rate FiO2 03/04/19 20:52 98.2 86 16 120/69 93 Room Air Sp02 EP Interpretation: reviewed, normal General Appearance: well appearing, no apparent distress Head: normocephalic, atraumatic Eyes: bilateral eye PERRL, bilateral eye EOMI ENT: normal pharynx Respiratory: lungs clear, no retraction, no accessory muscle use Musculoskeletal: other - Fairly benign exam anterior, posterior drawer are negative, no obvious effusion Neurologic: alert, oriented x3, responsive Skin: no rash, warm/dry Lymphatic: no adenopathy Medical Decision Making Diagnostic Impression: Primary Impression: Knee pain ER Course Patient presents with complaints of knee discomfort given the remote history of fall x-ray imaging was obtained Patient will benefit from likely MRI imaging Given the type of discomfort and the presentation Likely more consistent with ligamental/soft tissue changes Patient requires close follow-up with primary physician next several days Referral for outpatient MRI and return with any changes Other X-Ray Diagnostic Results Other X-Ray Diagnostic Results : X-Ray ordered: Right knee # of Views/Limited Vs Complete: 3 View Indication: Pain EP Interpretation: Yes Interpretation: no dislocation, no soft tissue swelling, no fractures Impression: No acute disease Electronically Signed by: Padma Parisi DO Last Vital Signs Date Time Temp Pulse Resp B/P (MAP) Pulse Ox O2 Delivery O2 Flow Rate FiO2 03/04/19 20:52 98.2 86 16 120/69 93 Room Air Status: unchanged Disposition: HOME, SELF-CARE Condition: Stable Additional Instructions: Patient is provided with the discharge instructions notified to follow up with primary doctor in the next 2-3 days otherwise return to the er with any worsening symptoms. Please note that this report is being documented using [employer] technology. This can lead to erroneous entry secondary to incorrect interpretation by the dictating instrument. Padma Parisi DO Mar 04, 2019 21:12
[2019-03-04 21:36] VITALS: BP 123/66
--- NOTE | 2019-03-04 21:36 | NUR ---
ER DISCHARGE NOTE: Patient is cleared to be discharged per Ailin. Pt is A/O x 4 on room air with stable vital signs. Pt was given D/C and prescription instructions and was able to verbalize understanding. Pt's ID band removed. Pt is able to ambulate with steady gait and took all belongings.
--- NOTE | 2019-03-05 14:39 | Diagnostic Imaging Report ---
Indication: Pain status post fall Technique: 3 views of the right knee Comparison: None Findings: There is mild degenerative narrowing of the medial joint compartment. No acute fractures. No dislocations. No suprapatellar effusion Impression: Negative
== END 2019-03-04 21:36 | disposition home or self-care (01) ==
LOC: EMR 21:27
DX: M25.561 Pain in right knee (principal); J45.909 Unspecified asthma, uncomplicated; Z88.5 Allergy status to narcotic agent; Z88.0 Allergy status to penicillin
CPT/HCPCS: 99283

== ENCOUNTER 2019-04-16 23:11 | Emergency (ER) | payer MEDICARE, OTHER ==
[~2019-04-16] VITALS: Ht 162.6 cm; Wt 63.5 kg
--- NOTE | 2019-04-16 23:30 | NUR ---
ED Nurse Note: RECIEVED PT FROM HOME, HERE WITH C/O LEFT NECK AND UPPER BACK PAIN X 1 WEEK AND WORSENING, PT THOUGHT IT WAS A CROOK IN HER NECK, DENIES ANY INJURY, TAKING MOTRIN WITH NO RELIEF, DENIES ANY OTHER COMPLAINTS OR DISCOMFORTS, PT IS AMBULATORY WITH STEADY GAIT AND DROVE HERSELF HERE. PT GOWNED AND ASSISTED TO MONITORIG, WILL RESUME CARE ORDERED.
[2019-04-16] MEDS ORDERED: HYDROcodone/Acetamin 5/325 tab ORAL ONE (23:45)
--- NOTE | 2019-04-17 00:20 | Emergency Room Report ---
History of Present Illness General Chief Complaint: Neck Pain Source: Patient Present Illness HPI This is a 64-year-old female with history of asthma. She presents with chief neck pain. Onset for last couple weeks but worse in the last few days. She said she woke up one day and the neck felt stiff. Worse with movement. They got better but now getting worse again. Pain is mostly to the lower cervical area. Mostly in the left side. No radicular pain. No trauma. Pain is 8 out of 10. No relief with ibuprofen. No incontinence of bowel or urine. Allergies: Coded Allergies: CODEINE (Verified Allergy, Unknown, 03/04/19) PENICILLINS (Unverified Allergy, Unknown, 03/04/19) Patient History Past Medical History: see triage record, old chart reviewed, asthma Past Surgical History: other Pertinent Family History: none Social History: Denies: smoking Last Menstrual Period: 15 years ago Now: No Immunizations: other Reviewed Nursing Documentation: PMH: Agreed; PSxH: Agreed Nursing Documentation-PMH Past Medical History: No History, Except For Hx Cardiac Problems: Yes - cholesterol Hx Asthma: Yes Review of Systems Eye: Denies: eye pain, blurred vision ENT: Denies: ear pain, nose congestion, throat swelling Respiratory: Denies: cough, shortness of breath Cardiovascular: Denies: chest pain, palpitations Gastrointestinal: Denies: abdominal pain, diarrhea, nausea, vomiting Musculoskeletal: Reports: joint pain - Neck pain; Denies: back pain Skin: Denies: rash Neurological: Denies: headache, numbness Endocrine: Denies: increased thirst, increased urine Hematologic/Lymphatic: Denies: easy bruising All Other Systems: negative except mentioned in HPI Physical Exam Vital Signs Date Time Temp Pulse Resp B/P (MAP) Pulse Ox O2 Delivery O2 Flow Rate FiO2 04/16/19 23:17 98.1 84 14 91 Room Air vitals unremarkable. Repeat pulse ox is 98% Sp02 EP Interpretation: reviewed, normal General Appearance: well appearing, no apparent distress, alert Head: normocephalic, atraumatic Eyes: bilateral eye PERRL, bilateral eye EOMI ENT: hearing grossly normal, normal pharynx Neck: full range of motion, supple, no meningismus, tender - Mostly left trapezius Respiratory: chest non-tender, lungs clear, normal breath sounds Cardiovascular #1: regular rate, rhythm, no murmur Gastrointestinal: normal bowel sounds, non tender, no mass, no organomegaly, no bruit, non-distended Musculoskeletal: back normal, gait/station normal, normal range of motion Psychiatric: mood/affect normal Skin: warm/dry Medical Decision Making Diagnostic Impression: Primary Impression: Neck pain ER Course Patient presents with neck pain. This is most likely arthritic in nature. No evidence of cauda equina syndrome, spinal epidural abscess or neoplastic process. X-rays unremarkable. We'll discharge home. Other X-Ray Diagnostic Results Other X-Ray Diagnostic Results : X-Ray ordered: C spine xrays # of Views/Limited Vs Complete: Complete Indication: Pain EP Interpretation: Yes Interpretation: no dislocation, no soft tissue swelling, no fractures, other - degenerative changes Impression: Other - DDD Electronically Signed by: Jose Cruz Mosley MD Last Vital Signs Date Time Temp Pulse Resp B/P (MAP) Pulse Ox O2 Delivery O2 Flow Rate FiO2 04/16/19 23:17 98.1 84 14 91 Room Air Status: improved Disposition: HOME, SELF-CARE Condition: Stable Scripts Tramadol Hcl* (ULTRAM*) 50 Mg Tablet 50 MG ORAL Q6H PRN for For Pain, #20 TAB 0 Refills Prov: Jose Cruz Mosley MD 04/17/19 Additional Instructions: Follow-up with your doctor in 7 days. Return if symptom worsen. Jose Cruz Mosley MD April 17, 2019 00:20
[2019-04-17 00:50] VITALS: BP 112/68
[2019-04-17] MEDS ORDERED: TRAMADOL HCL50 MG ORAL (00:55)
--- NOTE | 2019-04-17 01:00 | NUR ---
ED Nurse Note:ER DISCHARGE NOTE: Patient is cleared to be discharged per ERMD, pt is aox4, on room air, with stable vital signs. pt was given dc and prescription instructions, pt was able to verbalize understanding, pt id band removed without complications. pt is able to ambulate with steady gait. pt took all belongings.
[2019-04-17 01:12] VITALS: BP 112/68
--- NOTE | 2019-04-17 09:22 | Diagnostic Imaging Report ---
Indication: Neck Pain Findings: 5 views of the cervical spine were obtained. Bones are osteopenic. There is suggestion of mild narrowing of the C5-6 neural foramen bilaterally due to uncovertebral spur formation. On the left there is also suggestion of narrowing of the C3-4 foramen due to hypertrophic facet spur formation. The open-mouth view is negative and shows good alignment. There is narrowing of intervertebral discs at C4-5, C5-6 and C6-7 with endplate and uncovertebral spur formation. Alignment is relatively normal. There is a minimal anterolisthesis at C4-5. There is no soft tissue swelling or evidence of an acute fracture. IMPRESSION: Negative for acute injury. Degenerative changes as described above
== END 2019-04-17 01:13 | disposition home or self-care (01) ==
LOC: EMR 23:53
DX: M54.2 Cervicalgia (principal); Z88.6 Allergy status to analgesic agent; Z88.0 Allergy status to penicillin; E78.00 Pure hypercholesterolemia, unspecified
CPT/HCPCS: 72052; 99283